=== PATIENT | male | born 1965 | race African-American/Black ===

== ENCOUNTER 2018-04-10 11:29 | Outpatient (CLI) | payer OTHER ==
[2018-04-10 11:40] LABS: BASOPHILS % 0.4 (0.0-1.5); EOSINOPHILS % 3.8 % (0.0-6.8); MEAN CORPUSCULAR HEMOGLOBIN 26.8 pg (28.0-34.0); MONOCYTES % 9.4 % (0.0-11.0); NEUTROPHILS # 6.4 # k/uL (1.4-7.7)
[2018-04-10 11:46] LABS: eGFR (Non-African) > 60
== END 2018-04-10 11:30 ==
LOC: LAB 11:29
PROVIDERS: ATTEND General Practice
DX: R20.2 Paresthesia of skin (principal)
CPT/HCPCS: 80053; 85025